=== PATIENT | female | born 1980 | race Caucasian/White ===

== ENCOUNTER 2023-11-11 09:03 | Outpatient (CLI) | payer OTHER, SELFPAY ==
--- NOTE | ~2023-11-11 | MR_ITS ---
EXAMINATION: MR brain/brain stem wo con DATE: 11/11/2023 09:51 INDICATION: Soft tissue mass at skull vertex TECHNIQUE: Magnetic resonance imaging (MRI) of the brain and brainstem was performed without intraven ous contrast. Sequences included sagittal and axial T1-weighted SE, axial diffusion-weighted FS SE, a xial T2*-weighted GRE, axial T2-weighted FLAIR Propeller, and axial T2-weighted Propeller. Apparent d iffusion coefficient (ADC) maps were created. COMPARISON: None. FINDINGS: Brain parenchymal volume is normal. Normal lee-white differentiation. No ventriculomegaly or midline shift. No acute, infarction, mass or mass effect. No scalp mass is identified. No ventricu lomegaly or midline shift. Orbits are symmetric without disconjugate gaze. Paranasal sinuses and mast oids are pneumatized. Structures of the posterior fossa including 7/8th cranial nerve complex within normal limits. IMPRESSION: 1. Unremarkable MRI of the brain. If there is a persistent scalp abnormality, consider ultrasound. Reviewed, dictated and finalized at location B. IMPRESSION: 1. Unremarkable MRI of the brain. If there is a persistent scalp abnormality, c onsider ultrasound.
== END 2023-11-11 09:04 ==
LOC: MICIMG 09:05
PROVIDERS: PCP Family Medicine; Visit Provider Nurse Practitioner Family
DX: R22.0 Localized swelling, mass and lump, head (principal); R51.9 Headache, unspecified
CPT/HCPCS: 70551